=== PATIENT | male | born 1995 | race Caucasian/White ===

== ENCOUNTER 2021-09-11 22:42 | Emergency (ER) | payer OTHER ==
--- NOTE | 2021-09-11 23:00 | ED Physician Documentation ---
PD HPI ABD PAIN - Stated complaint Stated Complaint: ABD PX - Chief complaint Chief Complaint: Abd Pain - Additional information Additional information: Pt 26 yo male with LLQ abd pain x 3-4 days. worse with motion, no n/v/d. no fever Review of Systems Ten Systems: 10 systems reviewed and negative Constitutional: denies: Fever Eyes: denies: Loss of vision Ears: denies: Loss of hearing Nose: denies: Rhinorrhea / runny nose Throat: denies: Dental pain / toothache Cardiac: denies: Chest pain / pressure Respiratory: denies: Dyspnea GI: reports: Abdominal Pain. denies: Nausea, Vomiting, Diarrhea : denies: Dysuria PD PAST MEDICAL HISTORY - Present Medications Home Medications: Ambulatory Orders Medication Instructions Recorded Confirmed levoFLOXacin [Levofloxacin] 750 mg PO DAILY #7 tablet 09/12/21 metroNIDAZOLE [Flagyl] 500 mg PO TID #21 tab 09/12/21 - Allergies Allergies/Adverse Reactions: Allergies Allergy/AdvReac Type Severity Reaction Status Date / Time No Known Drug Allergies Allergy Verified 09/11/21 22:49 PD ED PE NORMAL - Vitals Vital signs reviewed: Yes - General General: Alert and oriented X 3 - HEENT HEENT: Pharynx benign - Neck Neck: Supple, no meningeal sign - Cardiac Cardiac: RRR - Respiratory Respiratory: No respiratory distress - Abdomen Abdomen: Normal bowel sounds. 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, No motor deficit Results - Vitals Vitals: Vital Signs - 24 hr 09/11/21 09/12/21 22:45 00:14 Temperature 36 C L Heart Rate 60 52 L Respiratory 18 17 Rate Blood Pressure 139/79 H 134/84 H O2 Saturation 100 99 Oxygen O2 Source Room air - Labs Labs: Laboratory Tests 09/11/21 09/11/21 23:17 23:17 WBC 10.2 RBC 4.95 Hgb 15.5 Hct 45.2 MCV 91.3 MCH 31.3 H MCHC 34.3 RDW 12.1 Plt Count 254 MPV 10.1 Neut # (Auto) 5.6 Lymph # (Auto) 3.7 H Hand # (Auto) 0.7 Eos # (Auto) 0.2 Baso # (Auto) 0.0 Absolute Nucleated RBC 0.00 Nucleated RBC % 0.0 Sodium 135 Potassium 4.1 Chloride 98 L Carbon Dioxide 27 Anion Gap 10.0 BUN 17 Creatinine 0.9 Estimated GFR (MDRD) 104 Glucose 98 Calcium 9.5 Total Bilirubin 0.8 AST 27 ALT 48 Alkaline Phosphatase 76 Total Protein 8.0 Albumin 4.6 Globulin 3.4 Albumin/Globulin Ratio 1.4 Lipase 27 PD MEDICAL DECISION MAKING - ED course Complexity details: reviewed results, d/w patient ED course: Pt 26 yo male with 3 day llq abd pain. Some tenderness without peritonitis on exam. labs WNL. Patient gen non toxic. CT positive for panniculitis. Will initial course abx. Encourage f/u with PCP, clear return precautions given. Departure - Departure Disposition: 01 Home, Self Care Clinical Impression: Panniculitis Prescriptions: metroNIDAZOLE [Flagyl] 500 mg PO TID #21 tab levoFLOXacin [Levofloxacin] 750 mg PO DAILY #7 tablet Discharge Date/Time: 09/12/21 01:10
[2021-09-11] MEDS ORDERED: IOVERSOL 320 100 ML VIAL IVP ONE (23:21)
[2021-09-11 23:25] LABS: BASOPHILS % (AUTO) 0.4 %; EOSINOPHILS # (AUTO) 0.2 10^3/uL (0.0-0.7); EOSINOPHILS % (AUTO) 2.3 %; HCT - HEMATOCRIT 45.2 % (42.0-52.0); HGB - HEMOGLOBIN 15.5 g/dL (14.0-18.0); LYMPHOCYTES # (AUTO) 3.7 10^3/uL (1.5-3.5); LYMPHOCYTES % (AUTO) 35.9 %; MEAN CORPUSCULAR HEMOGLOBIN 31.3 pg (27.0-31.0); MEAN CORPUSCULAR HGB CONC 34.3 g/dL (32.0-36.0); MEAN CORPUSCULAR VOLUME 91.3 fL (80.0-94.0); MEAN PLATELET VOLUME 10.1 fL (7.4-11.4); MONOCYTES # (AUTO) 0.7 10^3/uL (0.0-1.0); MONOCYTES % (AUTO) 6.5 %; NEUTROPHILS # (AUTO) 5.6 10^3/uL (1.5-6.6); NEUTROPHILS % (AUTO) 54.7 %; PLT - PLATELET COUNT 254 10^3/uL (130-450); RED BLOOD COUNT 4.95 10^6/uL (4.70-6.10); RED CELL DISTRIBUTION WIDTH 12.1 % (12.0-15.0); WHITE BLOOD COUNT 10.2 x10^3/uL (4.8-10.8)
[2021-09-11 23:33] LABS: ALBUMIN 4.6 g/dL (3.2-5.5); ALBUMIN/GLOBULIN RATIO 1.4 (1.0-2.2); BILIRUBIN,TOTAL 0.8 mg/dL (0.2-1.0); CALCIUM 9.5 mg/dL (8.5-10.3); CREATININE 0.9 mg/dL (0.6-1.2); POTASSIUM 4.1 mmol/L (3.5-5.0)
[2021-09-11] MEDS: KETOROLAC 30 MG/ML VIAL IVP STA (23:35)
[2021-09-11] MEDS: SODIUM CHLORIDE 0.9% 1,000 ML IV STA (23:35)
[2021-09-12] MEDS: IOVERSOL 320 100 ML VIAL IVP ONE (00:01)
--- NOTE | 2021-09-12 00:14 | CT Report ---
PROCEDURE: Abdomen/Pelvis W INDICATIONS: Abd pain CONTRAST: IV CONTRAST: Optiray 320 ml: 100 PO CONTRAST: *NO PO CONTRAST TECHNIQUE: After the administration of intravenous contrast, 5 mm thick sections acquired from the diaphragms to the symphysis. 5 mm thick coronal and sagittal reformats were acquired. For radiation dose reducti on, the following was used: automated exposure control, adjustment of mA and/or kV according to rolly ent size. COMPARISON: None. FINDINGS: Image quality: Excellent. ABDOMEN: Lung bases: Lung bases are clear. Heart size is normal. Solid organs: Liver and spleen are normal in size and enhancement. Hepatic steatosis is present. Ga llbladder is unremarkable Biliary system is non dilated. Pancreas enhances normally. No adrenal no dules. Kidneys demonstrate normal size and enhancement, without hydronephrosis. Peritoneum and bowel: Bowel loops demonstrate normal wall thickness and caliber. No free fluid or a ir. Appendix is normal. There is a focus of fat stranding in the anterior left lower quadrant. Althou gh there is adjacent bowel, it does not appear thickened and inflammation appears primarily centered within the mesenteric fat. No focal fluid collection is present. Nodes and vessels: No retroperitoneal or mesenteric adenopathy by size criteria. Aorta and inferior vena cava are normal in size. Miscellaneous: No ventral hernias. PELVIS: Genitourinary: Bladder wall thickness is normal. Miscellaneous: No inguinal hernias or adenopathy. Bones: No suspicious bony lesions. No vertebral body compression fractures. IMPRESSION: Focal fat inflammation within the left lower quadrant as described above. Appearance is suggestive of panniculitis, as inflammation appears primarily centered within the fat as opposed to an adjacent andreina wel loops. No focal fluid collection. Reviewed by: Nely Headley MD on 09/12/2021 12:12 AM [facility] Approved by: Nely Headley MD on 09/12/2021 12:12 AM PST Station ID: [id number]
[2021-09-12 00:15] VITALS: BP 134/84
[2021-09-12] MEDS: levoFLOXacin 250 MG TABLET PO STA (01:00)
[2021-09-12] MEDS: metroNIDAZOLE 250 MG TABLET PO STA (01:00)
[2021-09-12] MEDS ORDERED: levoFLOXacin 250 MG TABLET ONE (01:06)
[2021-09-12] MEDS ORDERED: metroNIDAZOLE 250 MG TABLET PO ONE (01:06)
== END 2021-09-12 01:10 | disposition home or self-care (01) ==
LOC: ED 22:42
DX: M79.3 Panniculitis, unspecified (principal)
CPT/HCPCS: 36415; 74177; 80053; 83690; 85025; 96374; 99282; 99284; A9270; Q9967

== ENCOUNTER 2024-01-27 19:20 | Emergency (ER) | payer OTHER ==
[2024-01-27 19:52] VITALS: O2SAT 98
--- NOTE | 2024-01-27 20:35 | ED Physician Documentation ---
History of Present Illness - Stated complaint Stated Complaint: LT HAND LAC - Chief complaint Chief Complaint: Laceration - History obtained from History obtained from: Patient - History of Present Illness Timing: Today Pain level max: 4 Pain level now: 4 - Additonal information Additional information: 29-year-old male presents to the emergency department a laceration to the left thumb and left index finger. He was using a mandolin slicer tonight when he accidentally sliced off the tip of the 2 fingers. Tetanus shot up-to-date. He wrapped the wounds tightly at home but could not get the bleeding to stop. PD PAST MEDICAL HISTORY - Past Medical History Past Medical History: No Cardiovascular: None Respiratory: None Neuro: None Endocrine/Autoimmune: None GI: None : None HEENT: None Psych: None Musculoskeletal: None Derm: None - Past Surgical History Past Surgical History: Yes General: Other - Present Medications Home Medications: Ambulatory Orders Medication Instructions Recorded Confirmed No Known Home Medications 01/27/24 01/27/24 - Allergies Allergies/Adverse Reactions: Allergies Allergy/AdvReac Type Severity Reaction Status Date / Time No Known Drug Allergies Allergy Verified 01/27/24 19:52 - Social History Does the pt smoke?: No Smoking Status: Never smoker Does the pt drink ETOH?: No Does the pt have substance abuse?: No - Immunizations Immunizations are current?: Yes - POLST Patient has POLST: No PD ED PE NORMAL - Vitals Vital signs reviewed: Yes - General General: Alert and oriented X 3 - Derm Derm: Warm and dry - Extremities Extremities: Other (2 small distal fingertip avulsions 1 to the left thumb, 1 to the left index finger, very superficial, few millimeters deep. No bony exposure. Approximately 1 cm circular in size. Neurovascular intact.) - Neuro Neuro: Alert and oriented X 3 Results - Vitals Vitals: Vital Signs - 24 hr 01/27/24 01/27/24 19:47 20:39 Temperature 36.2 C L Heart Rate 110 H 88 Respiratory 16 14 Rate Blood Pressure 134/72 H 130/70 O2 Saturation 98 98 Oxygen O2 Source Room air Procedures - Laceration (location) L thumb Length in cm: 1 Wound type: Curved (circular), Into subcut fat Neurovascular status: Sensory intact, Motor intact, Vascular intact Wound preparation: Irrigated copiously NS, Wound explored, To the base Skin layer closure: Dermabond Other: Patient tolerated well, No complications, Neurovascular intact, Dressing applied, Tetanus UTD L index finger Length in cm: 1 Wound type: Curved (circular) Neurovascular status: Sensory intact, Motor intact, Vascular intact Wound preparation: Irrigated copiously NS, Wound explored, To the base Skin layer closure: Dermabond Other: Patient tolerated well, No complications, Neurovascular intact, Dressing applied, Tetanus UTD PD Medical Decision Making - ED course Complexity details: considered differential, d/w patient ED course: 29-year-old male with 2 small fingertip avulsions, superficial. Finger tourniquets were applied and then Dermabond was used to seal the area. Tourniquets were then removed and the glue is dry. No further bleeding. Bandages were placed over each of the distal fingertips in case there is any bleeding tonight and help protect them. Warnings of infection and instructions on wound care given at bedside. Patient counseled regarding signs and symptoms for which I believe and urgent re-evaluation would be necessary. Patient with good understanding of and agreement to plan and is comfortable going home at this time This document was made in part using voice recognition software. While efforts are made to proofread this document, sound alike and grammatical errors may occur. Departure - Departure Disposition: 01 Home, Self Care Clinical Impression: Fingertip avulsion Qualifiers: Encounter type: initial encounter Qualified Code(s): S61.209A - Unspecified ope n wound of unspecified finger without damage to nail, initial encounter Condition: Good Instructions: ED Laceration Amputation Finger Tip Open Tx Follow-Up: your,doctor in 1 week for wound check [Other] Comments: Please do not apply any ointment as this may dissolve the glue. The glue will fall off on its own in a few days. Be cautious with the tips of your fingers for the next few days. There may be a small amount of bleeding still. You can change the outer dressing if it becomes soiled or bloody. [place] about 1 [place]. Please return if you notice redness, swelling or drainage from the wound. Forms: PCP List Discharge Date/Time: 01/27/24 20:45
[2024-01-27 20:48] VITALS: BP 130/70
== END 2024-01-27 20:45 | disposition home or self-care (01) ==
LOC: ED 19:20
DX: S61.012A Laceration without foreign body of left thumb without damage to nail, initial encounter (principal); S61.211A Laceration without foreign body of left index finger without damage to nail, initial encounter; W26.8XXA Contact with other sharp object(s), not elsewhere classified, initial encounter
CPT/HCPCS: 12001; 99283